=== PATIENT | female | born 1980 | race Caucasian/White ===

== ENCOUNTER 2019-06-01 08:18 | Day surgery (SDC) | payer BC ==
[~2019-06-01] VITALS: Ht 162.6 cm; Wt 54.4 kg
[2019-06-01] MEDS ORDERED: MAGNESIUM250 MG (08:59)
== END 2019-06-01 10:24 | disposition home or self-care (01) ==
LOC: ORSCSDS 08:18
PROVIDERS: Student in an Organized Health Care Education/Training Program
PROC: 0DBF8ZX Excision of Right Large Intestine, Via Natural or Artificial Opening Endoscopic, Diagnostic (ICD-10-PCS; principal; 2019-06-01 09:30)
PROC: 0DBB8ZX Excision of Ileum, Via Natural or Artificial Opening Endoscopic, Diagnostic (ICD-10-PCS; principal; 2019-06-01 09:30)
PROC: 0DBG8ZX Excision of Left Large Intestine, Via Natural or Artificial Opening Endoscopic, Diagnostic (ICD-10-PCS; principal; 2019-06-01 09:30)
DX: K58.0 Irritable bowel syndrome with diarrhea (principal); K64.4 Residual hemorrhoidal skin tags; R10.9 Unspecified abdominal pain
CPT/HCPCS: 88305; J2704; J7120